=== PATIENT | female | born 1955 | race Caucasian/White ===

== ENCOUNTER → 2023-01-03 08:54 | Outpatient (CLI) | payer MEDICARE, SELFPAY ==
[2023-01-03 09:50] LABS: Hemoglobin A1C 5.7 % (4.0-6.0)
[2023-01-03 09:53] LABS: Basophils % 0.5 % (0.1-2.0); Eosinophils # 0.1 K/mm3 (0.0-0.4); Hematocrit 45.4 % (37.0-47.0); Lymphocytes # 1.6 K/mm3 (0.7-4.5); Lymphocytes % 33.1 % (10-50); Mean Corpuscular HGB Conc 32.9 g/dL (31.8-35.4); Mean Corpuscular Hemoglobin 29.2 pg (27.0-31.2); Mean Corpuscular Volume 88.8 fl (81-99); Mean Platelet Volume 8.6 fl (7.4-10.4); Monocytes # 0.3 K/mm3 (0.1-1.0); Monocytes % 6.6 % (1.7-9.3); Neutrophils # 2.8 K/mm3 (1.8-7.8); Neutrophils % 57.8 % (37.0-80.0); Platelet Count 160 K/mm3 (142-424); Red Blood Count 5.12 M/mm3 (4.20-5.40); Red Cell Distribution Width 13.2 % (11.5-17.5); White Blood Count 4.8 K/mm3 (4.8-10.8)
[2023-01-03 10:13] LABS: Chloride 107 mmol/L (98-107); Potassium 4.7 mmoL/L (3.5-5.1); Sodium 140 mmol/L (136-145)
[2023-01-03 10:15] LABS: Alanine Aminotransferase 38 U/L (12-78); Aspartate Amino Transferase 36 U/L (14-36); Blood Urea Nitrogen 14 mg/dl (7-17); Estimated Glomerular Filt Rate 100 ml/min (>60); GFR (African American) 121 ML/MIN (>60)
[2023-01-03 10:16] LABS: Albumin Level 4.3 g/dl (3.5-5.0); Albumin/Globulin Ratio 1.5 (1.1-1.8); Alkaline Phosphatase 108 U/L (38-126); Anion Gap 11.7 mEq/L (5-15); Bilirubin,Total 0.7 mg/dl (0.2-1.3); Carbon Dioxide 26 mmol/L (22.0-30.0); Chol/HDL Ratio 3.7 (1-3.5); Cholesterol 172 mg/dl (140-200); Globulin 2.8 g/dL (1.3-3.2); Glucose 95 mg/dl (74-100); HDL Cholesterol 47 mg/dl (40-60); Total Protein,Serum 7.1 g/dl (6.3-8.2); Triglycerides 133 mg/dl (30-150); VLDL Cholesterol 27 mg/dL (0-40)
[2023-01-03 10:27] LABS: Direct LDL Cholesterol 92.93 mg/dL (100-129)
[2023-01-03 10:47] LABS: Thyroid Stimulating Hormone 1.92 uIU/mL (0.465-4.68)
== END ==
PROVIDERS: PCP Nurse Practitioner Family; Visit Provider Nurse Practitioner Family
DX: R73.9 Hyperglycemia, unspecified (principal); E78.5 Hyperlipidemia, unspecified; E03.9 Hypothyroidism, unspecified
CPT/HCPCS: 36415; 80053; 80061; 83036; 84443; 85025

== ENCOUNTER 2024-01-23 07:12 | Outpatient (CLI) | payer MEDICARE, SELFPAY ==
--- NOTE | 2024-01-23 07:20 | US_ITS ---
FINAL REPORT CLINICAL HISTORY: UPPER ABD PAIN FINDINGS: RIGHT UPPER QUADRANT ULTRASOUND Sonographic images of the right upper quadrant were obtained. The pancreas is partially obscured. There is fatty infiltration of the liver. The gallbladder appears normal without evidence of gallstones.The common duct measures 3 mm. Limited images of the right kidney are normal. IMPRESSION: Fatty liver. Reviewed, Interpreted and Dictated by Jose Hamlin III, MD Transcribed by Geni Valdes Authenticated and [facility]
[2024-01-23 07:42] LABS: Basophils % 0.6 % (0.1-2.0); Eosinophils # 0.1 K/mm3 (0.0-0.4); Eosinophils % 1.3 % (0.1-12.0); Hematocrit 42.3 % (37.0-47.0); Hemoglobin 14.2 g/dL (12.2-16.2); Lymphocytes # 1.9 K/mm3 (0.7-4.5); Mean Corpuscular HGB Conc 33.5 g/dL (31.8-35.4); Mean Corpuscular Hemoglobin 30.7 pg (27.0-31.2); Mean Corpuscular Volume 91.7 fl (81-99); Mean Platelet Volume 8.2 fl (7.4-10.4); Monocytes # 0.4 K/mm3 (0.1-1.0); Monocytes % 6.4 % (1.7-9.3); Neutrophils # 3.1 K/mm3 (1.8-7.8); Neutrophils % 56.7 % (37.0-80.0); Platelet Count 168 K/mm3 (142-424); Red Blood Count 4.62 M/mm3 (4.20-5.40); Red Cell Distribution Width 13.5 % (11.5-17.5); White Blood Count 5.5 K/mm3 (4.8-10.8)
[2024-01-23 08:58] LABS: Alanine Aminotransferase 29 U/L (12-78); Albumin Level 3.9 g/dl (3.5-5.0); Albumin/Globulin Ratio 1.4 (1.1-1.8); Alkaline Phosphatase 91 U/L (38-126); Amylase 54 U/L (30-110); Anion Gap 12.9 mEq/L (5-15); Aspartate Amino Transferase 31 U/L (14-36); Bilirubin,Total 0.7 mg/dl (0.2-1.3); Blood Urea Nitrogen 24 mg/dl (7-17); Calcium 9.1 mg/dl (8.4-10.2); Carbon Dioxide 23 mmol/L (22.0-30.0); Chloride 111 mmol/L (98-107); Estimated Glomerular Filt Rate 84 ml/min (>60); GFR (African American) 101 ML/MIN (>60); Globulin 2.8 g/dL (1.3-3.2); Glucose 97 mg/dl (74-100); Lipase 132 U/L (23-300); Potassium 3.9 mmoL/L (3.5-5.1); Sodium 143 mmol/L (136-145); Total Protein,Serum 6.7 g/dl (6.3-8.2)
== END 2024-01-23 23:59 | disposition home or self-care (01) ==
LOC: RAD 07:12
PROVIDERS: PCP Nurse Practitioner Family; Visit Provider Nurse Practitioner Family
DX: R10.10 Upper abdominal pain, unspecified (principal)
CPT/HCPCS: 36415; 76705; 80053; 82150; 83690; 85025

== ENCOUNTER 2024-03-12 10:40 | Outpatient (CLI) | payer MEDICARE, SELFPAY ==
--- NOTE | 2024-03-12 10:43 | MM_ITS ---
PROCEDURE INFORMATION: Exam: MG Bilateral Screening 3D Mammography Exam date and time: 03/12/2024 10:48 AM Age: 68 years old Clinical indication: Screening examination TECHNIQUE: Imaging protocol: Bilateral Screening tomosynthesis and 2D mammography including computer-aided detection (CAD) when performed. COMPARISON: No relevant prior studies available. FINDINGS: MAMMOGRAPHY: Breast composition: The breasts are almost entirely fatty. Mass: None. Architectural distortion: None. Calcifications: No suspicious calcifications. Asymmetric density: None. Skin thickening: None. Axillary adenopathy: None. IMPRESSION: No mammographic evidence of malignancy. Annual screening is recommended unless otherwise clinically indicated. ASSESSMENT: BI-RADS Category 1: Negative.
== END 2024-03-12 23:59 | disposition home or self-care (01) ==
LOC: RAD 10:41
PROVIDERS: PCP Nurse Practitioner Family; Visit Provider Nurse Practitioner Family
DX: Z12.31 Encounter for screening mammogram for malignant neoplasm of breast (principal)
CPT/HCPCS: 77063; 77067

== ENCOUNTER 2024-06-14 10:52 | Outpatient (CLI) | payer MEDICARE, SELFPAY ==
--- NOTE | 2024-06-14 | CA_ITS ---
APPROVED REPORT EXAM: Comprehensive 2D, Doppler, and color-flow Echocardiogram Advertising Copy Writer: Maggy Reina CRT Ht: 5 ft 4 in Wt: 255lbs BSA: 2.17 BP: 110/70 mmHg Indications: Dyspnea,HLD, SOB, OBESITY 2D Dimensions LA Volume 38.20 mL LA Volume Index 17.20 mL/m2 (M/F) 16-34 M-Mode Dimensions RVDd 2.88 cm (0.9-2.6) LA Diam 3.51 cm (1.9-4.0) LVDd 5.76 cm (3.5-5.7) LVDs 3.64 cm (3.5-5.7) IVSd 1.17 cm (0.6-1.1) PWd 0.45 cm (0.6-1.1) EF (Teich) 65.90% FS 36.80% EDV (Teich) 163.90 mL TAPSE 1.91 (<1.7) ESV (Teich) 55.90 mL LV Diastology E Decel Time 197 (160-240 msec) E/A Ratio 0.92 MED A' 9.10 cm/s LAT A' 10.60 cm/s Aortic Valve AI PHT 629.00 ms AO Peak GR. 5.30 mmHg Mitral Valve MV A Velocity 64.0 (40-130 cm/s) E/A Ratio 0.92 Pulmonary Valve PV Peak Velocity 105.0 (50-150 cm/s) Tricuspid Valve TR P. Velocity 220.00 cm/s RAP Estimate 10.00 mmHg RVSP 29.40 mmHg Left Ventricle The left ventricle is normal size. The left ventricular systolic function is normal. The left ventricular ejection fraction is within the normal range. There is increased LV wall thickness. There is normal LV segmental wall motion. The left ventricular diastolic function is normal. LVEF is 55%. Right Ventricle The right ventricle is normal size. The right ventricular systolic function is normal. Atria Left atrium is mildly dilated. The right atrium size is normal. There is no Doppler evidence of interatrial shunt. Aortic Valve The aortic valve is mildly thickened. There is no aortic valvular stenosis. Mild to moderate aortic regurgitation. Mitral Valve The mitral valve leaflets are mildly thickened. No evidence of mitral valve stenosis. Mild mitral regurgitation. Tricuspid Valve Tricuspid valve is grossly normal in structure and function. Trace tricuspid regurgitation. There is insufficient TR jet to estimate RVSP. Trace pulmonic regurgitation. Pulmonic Valve The pulmonary valve is normal in structure. Great Vessels The aortic root is normal in size. IVC is normal in size and collapses >50% with inspiration. Pericardium There is no pericardial effusion. Other Information Study Quality: Fair Conclusion Normal biventricular systolic function. Mild LA dilation. Mild to moderate AI. Mild MR. Electronically signed by : Justine Reyes MD 07/01/2024 10:22:23
== END 2024-06-14 23:59 | disposition home or self-care (01) ==
PROVIDERS: PCP Nurse Practitioner Family; Visit Provider Nurse Practitioner Family
DX: R06.09 Other forms of dyspnea (principal); I51.7 Cardiomegaly; I34.0 Nonrheumatic mitral (valve) insufficiency; I35.1 Nonrheumatic aortic (valve) insufficiency
CPT/HCPCS: 93306

== ENCOUNTER 2025-01-29 11:32 | Outpatient (CLI) | payer MEDICARE, SELFPAY ==
--- OUTSIDE RECORDS SUMMARY | 2025-01-29 11:38 | XMS_ITS | Clinical Summary ---
Author Organization [facility] ([place], [place], [place], [place]) Address [address] [place] [address] Care Team Providers Care Life Consultant Name Role Phone Malaika Valdovinos ISIDRO Primary Care Provider + [phone] Allergies No known active allergies Medications atorvastatin (LIPITOR) 20 MG tablet Take 1 tablet (20 mg total) by mouth daily. 06/13/2024 Active benzonatate (TESSALON) 200 MG capsule Take 1 capsule (200 mg total) by mouth 3 (three) times daily as needed. 06/08/2024 Active levothyroxine (SYNTHROID) 75 MCG tablet Take 1 tablet (75 mcg total) by mouth daily. 07/29/2024 Active pantoprazole (PROTONIX) 40 MG tablet Take 1 tablet (40 mg total) by mouth daily. 07/29/2024 Active cyanocobalamin (vitamin B-12) 1000 MCG tablet Take 1 tablet (1,000 mcg total) by mouth daily. Active polycarbophiL (FIBERCON) 625 mg tablet Take 1 tablet (625 mg total) by mouth daily. Active multivitamin per tablet Take 1 tablet by mouth daily. Active Active Problems No known active problems Family History Medical History Relation Name Comments Heart attack Mother Relation Name Status Comments Mother Social History Tobacco Use Types Packs/Day Years Used Date Smoking Tobacco: Never Smokeless Tobacco: Never Tobacco Cessation:Counseling Given: Not Answered Comments Unknown Sex and Gender Information Value Date Recorded Sex Assigned at Not on file Legal Sex Female 3:36 PM CDT Gender Identity Female 08/14/2024 8:19 AM SDE Sexual Orientation Not on file Last Filed Vital Signs Vital Sign Reading Time Taken Comments Blood Pressure 120/70 07/30/2024 1:38 PM EST Pulse 76 07/30/2024 1:38 PM EST Temperature - - Respiratory Rate - - Oxygen Saturation - - Inhaled Oxygen Concentration - - Weight 119.7 kg (264 lb) 07/30/2024 1:38 PM EST Height 165.1 cm (5' 5 ) 07/30/2024 1:38 PM EST Body Mass Index 43.93 07/30/2024 1:38 PM EST Plan of Treatment Health Maintenance Due Date Last Done Comments CT Colonography 1957 Colonoscopy 1957 Colorectal Cancer Screening 1957 DXA SCAN 1957 FOBT/FIT 1957 Fit-DNA (Cologuard) 1957 Sigmoidoscopy 1957 Depression Screening (12+) 1969 Hepatitis C Screening 10/28/1975 DTAP/TDAP/TD VACCINES (1 - Tdap) 1976 Pneumococcal 50+ years (1 of 1 - PCV) 10/28/2007 Shingles Vaccine (Zoster) (1 of 2) 10/28/2007 Respiratory Syncytial Virus (RSV) Adult or (1 - Risk 60-74 years 1-dose series) 2017 Breast Cancer Screening 04/15/2021 04/15/2019, 07/30 COVID-19 VACCINE ( - season) 2024 Falls Risk Screening 06/19/2024 Medicare Initial AWV [id number] 06/20/2024 Influenza Vaccine (#1) 2025 Tobacco Cessation Counseling and Screening (12+) 07/30/2025 07/30/2024 Insurance [facility] MEDICARE PPO Care Teams Life Consultant Relationship Specialty Start Date End Date Malaika Valdovinos, [address] [address] PCP - General Nurse Practitioner 07/30/24
--- OUTSIDE RECORDS SUMMARY | 2025-01-29 11:38 | XMS_ITS | Clinical Summary ---
Author Organization [facility] Address [address] [place] [address] Care Team Providers Care Carbonation Tester Name Role Phone Monica Fletcher BUCKLE STRINGER Primary Care Provider [phone] Source Comments This information has been disclosed to you from confidential records protectedfrom disclosure by state law. You shall make no further disclosure of thisinformation without the specific, written, and informed release of theindividual to whom it pertains, or as otherwise permitted by law. A generalauthorization for the release of medical or other information is not sufficientfor the purposes of therelease of HIV test results or diagnoses. [id number] Health Social History Tobacco Use Types Packs/Day Years Used Date Smoking Tobacco: Never Assessed Comments Unknown Sex and Gender Information Value Date Recorded Sex Assigned at Not on file Legal Sex Female 1:12 PM EDT Gender Identity Not on file Sexual Orientation Not on file Plan of Treatment Not on file Care Teams Carbonation Tester Relationship Specialty Start Date End Date Monica Fletcher NP [address] [place] [address] [place] [id number] PCP - General 04/15/19
--- OUTSIDE RECORDS SUMMARY | 2025-01-29 11:38 | XMS_ITS | Clinical Summary ---
Author Organization [facility] Address [address] [place] [id number] Care Team Providers Care Technical Internship Name Role Phone Francisco Ngo MD Primary Care Provider [phone] Social History Tobacco Use Types Packs/Day Years Used Date Smoking Tobacco: Never Assessed Abuse Screen Answer Date Recorded Unsafe at Home or Work/School Not on file Feels Threatened by Someone? Not on file 02/2023 Does Anyone Keep You from Co ntacting Others or Doint Things Outside the Home? Not on file 03/27/2023 Physical Sign of Abuse Present Not on file 1 Housing Stability Answer Date Recorded Current Living Arrangements Not on file 02/2023 Potentially Unsafe Housing Conditions Not on elina e 03/27/2023 Family and Community Support Answer Mic e Recorded Help with Day-to-Day Activities Not on file 03/27/2023 Lonely or Isolated Not on file 03/27/2023 Employment Answer Date Recorded Do you want help finding or keeping work or a abner b? Not on file 03/27/2023 Disabilities Answer Date Recorded Concentrating, Remembering, or Making Decisions Difficulty Not on file 03/27/2023 Doing Errands Independently Difficulty Not on fi le 03/27/2023 Education Answer Date Recorded Help with school or training? Not on file Preferred Language Not on file 03/27/2023 Comments Unknown Sex and Gender Information Value Date Recorded Sex Assigned at Not on file Legal Sex Female 9:59 AM EDT Gender Identity Not on file Sexual Orientation Not on file Plan of Treatment Health Maintenance Due Date Last Done Comments ANNUAL PHYSICAL 1955 DXA SCAN 1957 HEPATITIS C SCREENING 1957 TDAP/TD VACCINES (1 - Tdap) 1976 COLOGUARD 2002 COLON CANCER SCREENING 5 YEAR SIGMOIDOSCOPY 2002 COLONOSCOPY 2002 [address] CANCER SCREENING 2002 CT COLONOGRAPHY 2002 FECAL OCCULT BLOOD TEST 2002 FIT Testing (1 year) 2002 Pneumococcal Vaccine 50+ (1 of 1 - PCV) 10/28/2007 ZOSTER VACCINE (1 of 2) 10/28/2007 MAMMOGRAM 07/30/2017 07/30/2015 COVID-19 Vaccine ( - 2023- season) 2024 INFLUENZA VACCINE 03/19/2025 Procedures Procedure Name Priority Date/Time Associated Diagnosis Comments MAMMO SCREENING BILATERAL W CAD Routine 07/30/2015 8:59 AM EST from Last 3 Months or Most Recently Relevant to Health Maintenance Results * Mammo screening bilateral (07/30/2015 8:59 AM EST) Anatomical Region Laterality Modality Breast Bilateral Mammography 07/30/2015 8:59 AM EST Narrative 07/30/2015 10:12 AM EST ROUTINE SCREENING MAMMOGRAM HISTORY- 59-year-old female for routine screening IMAGE COMPARISON- Prior exams, most recently 04/03/2013 TECHNIQUE- Bilateral full field digital mammography was performed in both 2 and 3-dimensional acquisitions. FINDINGS- The breasts are almost entirely fatty. There is no worrisome mass, group of calcifications, or architectural distortion to suggest malignancy. IMPRESSION- No findings suspicious for malignancy. BI-RADS CATEGORY- I, NEGATIVE RECOMMENDATION- Yearly mammogram, yearly physical exam, and monthly self breast exam. CAD was used. The standard false negative rate of mammography is between 10% and 25%. Complex patterns or increased breast density will markedly elevate the false negative rate of mammography. If there is a palpable area of concern, biopsy should be considered regardless of imaging findings. A letter, in lay terminology, with the results of this exam will be mailed to the patient. Reading Radiologist- ADELSO LESTER Releasing Radiologist- ADELSO LESTER Released Date Time- 07/30/15 1012 Screw Machine RepairerLynda Ang Procedure Note Adelso Jeffery MD - 07/30/2015 ROUTINE SCREENING MAMMOGRAM HISTORY- 59-year-old female for routine screening IMAGE COMPARISON- Prior exams, most recently 04/03/2013 TECHNIQUE- Bilateral full field digital mammography was performed in both 2 and 3-dimensional acquisitions. FINDINGS- The breasts are almost entirely fatty. There is no worrisome mass, group of calcifications, or architectural distortion to suggest malignancy. IMPRESSION- No findings suspicious for malignancy. BI-RADS CATEGORY- I, NEGATIVE RECOMMENDATION- Yearly mammogram, yearly physical exam, and monthly self breast exam. CAD was used. The standard false negative rate of mammography is between 10% and 25%. Complex patterns or increased breast density will markedly elevate the false negative rate of mammography. If there is a palpable area of concern, biopsy should be considered regardless of imaging findings. A letter, in lay terminology, with the results of this exam will be mailed to the patient. Reading Radiologist- ADELSO LESTER Releasing Radiologist- ADELSO LESTER Released Date Time- 07/30/15 1012 Screw Machine Repairer- Sav Francisco Ngo MD [facility] [place] F inal Result from Last 3 Months or Most Recently Relevant to Health Maintenance Care Teams Technical Internship Relationship Specialty Start Date End Date Francisco Ngo MD [address] [place] [facility] [address] [place] [id number] PCP - General 07/30/15
--- OUTSIDE RECORDS SUMMARY | 2025-01-29 11:38 | XMS_ITS | Referral Summary ---
Author Organization [facility] ([place], [place], [place], [place]) Address [address] [place] [address] Care Team Providers Care Tourist Information Officer Name Role Phone Malaika Valdovinos ISIDRO Primary Care Provider + [phone] Allergies No known active allergies Medications atorvastatin [...] Active Active Problems No known active problems Social History Tobacco Use Types Packs/Day Years Used Date Smoking Tobacco: Never Smokeless Tobacco: Never Tobacco Cessation:Counseling Given: Not Answered Comments Unknown Sex and Gender Information Value Date Recorded Sex Assigned at Not on file Legal Sex Female 3:36 PM CDT Gender Identity Female 08/14/2024 8:19 AM PUMP OILER Sexual Orientation Not on file Last Filed [...] 07/30/2024 1:38 PM EST Plan of Treatment Not on file Insurance [employer] MEDICARE PPO Care Teams Tourist Information Officer Relationship Specialty Start Date End Date Malaika Valdovinos APRN [address] [place] [address] PCP - General Nurse Practitioner 07/30/24
[2025-01-29 11:56] LABS: Hematocrit 43.6 % (37.0-47.0); Hemoglobin 14.7 g/dL (12.2-16.2); Immature Granulocytes % 0.2 %; Mean Corpuscular HGB Conc 33.7 g/dL (31.8-35.4); Mean Corpuscular Hemoglobin 30.0 pg (27.0-31.2); Mean Corpuscular Volume 89.0 fl (81-99); Nucleated Red Blood Cells % 0 %; Platelet Count 145 K/mm3 (142-424); Red Blood Count 4.90 M/mm3 (4.20-5.40); Red Cell Distribution Width-SD 39.6 fL; White Blood Count 4.8 K/mm3 (4.8-10.8)
[2025-01-29 12:30] LABS: Albumin Level 4.4 g/dl (3.5-5.0); Chloride 105 mmol/L (98-107); Potassium 4.6 mmoL/L (3.5-5.1); Sodium 139 mmol/L (136-145)
[2025-01-29 12:32] LABS: Blood Urea Nitrogen 22 mg/dl (7-17); Creatinine,Serum 0.60 mg/dl (0.52-1.04); Estimated Glomerular Filt Rate 100 ml/min (>60); GFR (African American) 121 ML/MIN (>60)
[2025-01-29 12:33] LABS: Alanine Aminotransferase 40 U/L (12-78); Albumin/Globulin Ratio 1.5 (1.1-1.8); Alkaline Phosphatase 92 U/L (38-126); Anion Gap 13.6 mEq/L (5-15); Aspartate Amino Transferase 41 U/L (14-36); Bilirubin,Total 1.0 mg/dl (0.2-1.3); Calcium 9.2 mg/dl (8.4-10.2); Carbon Dioxide 25 mmol/L (22.0-30.0); Cholesterol 235 mg/dl (140-200); Globulin 2.9 g/dL (1.3-3.2); Glucose 95 mg/dl (74-100); HDL Cholesterol 46 mg/dl (40-60); Total Protein,Serum 7.3 g/dl (6.3-8.2); Triglycerides 125 mg/dl (30-150)
[2025-01-29 12:49] LABS: Free T4 (Free Thyroxine) 1.13 ng/dl (0.78-2.19)
[2025-01-29 13:06] LABS: Thyroid Stimulating Hormone 1.88 uIU/mL (0.465-4.68)
== END 2025-01-29 23:59 | disposition home or self-care (01) ==
LOC: LAB 11:33
PROVIDERS: PCP Nurse Practitioner Family; Visit Provider Nurse Practitioner Family
DX: E03.9 Hypothyroidism, unspecified (principal); E78.5 Hyperlipidemia, unspecified
CPT/HCPCS: 36415; 80053; 80061; 84439; 84443; 85025

== ENCOUNTER 2025-03-24 09:26 | Outpatient (CLI) | payer MEDICARE, SELFPAY ==
--- NOTE | 2025-03-24 09:30 | XR_ITS ---
FINAL REPORT TECHNIQUE: Bone densitometry calculations of the lumbar spine and left hip were obtained. CLINICAL HISTORY: SCREENING COMPARISON: None FINDINGS: Using L1-4, the bone mineral density of the spine is 1.193 g/cm2, corresponding to T-score of 1.3 and a Z score of 3.3. This is within the range of normal limits. Using the left hip, the bone mineral density of the femoral neck is 0.701 g/cm2, corresponding to a T-score of -1.3 and a Z-score of 0.3. This is within the range of osteopenia. FRAX 10 year fracture risk is 1.4% for a hip fracture and 14% for a major osteoporotic fracture. NOTE: T-score: Standard deviation compared with peak bone mass of young adult mean. *Following the recommendations of the International Society of Bone densitometry, classification of hip BMD is based on the lower of two T-scores; total hip or femoral neck. IMPRESSION: 1. Bone mineral density of the lumbar spine within the range of normal limits. 2. Bone mineral density of the left femoral neck within the range of osteopenia. Reviewed, Interpreted and Dictated by Santa Price MD Transcribed by Sara Arrieta Authenticated and [facility]
--- OUTSIDE RECORDS SUMMARY | 2025-03-24 09:33 | XMS_ITS | Clinical Summary ---
Author Organization [facility] Address [address] [place] [id number] Care Team Providers Care Print Shop Assistant Name Role Phone Monica Fletcher MECHANICAL ENERGY ENGINEER Primary Care Provider [phone] Source Comments This information has been disclosed [...] therelease of HIV test results or diagnoses. [id number] Health Social History Tobacco Use Types Packs/Day Years Used Date Smoking Tobacco: Never Assessed Comments Unknown Sex and Gender Information Value Date Recorded Sex Assigned at Not on file Legal Sex Female 1:12 PM EDT Gender Identity Not on file Sexual Orientation Not on file Plan of Treatment Not on file Care Teams Print Shop Assistant Relationship Specialty Start Date End Date Monica Fletcher NP [address] [place] [address] [place] [id number] PCP - General 04/15/19
--- OUTSIDE RECORDS SUMMARY | 2025-03-24 09:33 | XMS_ITS | Clinical Summary ---
Author Organization [facility] ([place], [place], [place], [place]) Address [address] [place] [address] Care Team Providers Care Stock Order Lister Name Role Phone Malaika Valdovinos ISIDRO Primary Care Provider + [phone] Allergies No known active allergies Medications atorvastatin [...] CDT Gender Identity Female 08/14/2024 8:19 AM DISABILITY LIAISON OFFICER Sexual Orientation Not on file Last Filed [...] 2017 Breast Cancer Screening 04/15/2021 04/15/2019, 07/30 Falls Risk Screening 06/19/2024 Medicare Initial AWV [id number] 06/20/2024 COVID-19 VACCINE ( - season) 2025 Influenza Vaccine (#1) 2025 Tobacco Cessation Counseling and Screening (12+) 07/30/2025 07/30/2024 Insurance [facility] MEDICARE PPO Care Teams Stock Order Lister Relationship Specialty Start Date End Date Malaika Valdovinos, [address] [address] PCP - General Nurse Practitioner 07/30/24
--- OUTSIDE RECORDS SUMMARY | 2025-03-24 09:33 | XMS_ITS | Referral Summary ---
Author Organization [facility] ([place], [place], [place], [place]) Address [address] [place] [address] Care Team Providers Care Knitter Hand Name Role Phone Malaika Valdovinos ISIDRO Primary Care Provider + [phone] Allergies No known active allergies Medications atorvastatin [...] CDT Gender Identity Female 08/14/2024 8:19 AM SLURRY TANK OPERATOR Sexual Orientation Not on file Last Filed [...] file Insurance [employer] MEDICARE PPO Care Teams Knitter Hand Relationship Specialty Start Date End Date Malaika Valdovinos APRN [address] [place] [address] PCP - General Nurse Practitioner 07/30/24
--- OUTSIDE RECORDS SUMMARY | 2025-03-24 09:33 | XMS_ITS | Clinical Summary ---
Author Organization [facility] Address [address] [place] [id number] Care Team Providers Care Soccer Coach Name Role Phone Francisco Ngo MD Primary Care Provider Social History Tobacco Use Types Packs/Day Years [...] (1 of 2) 10/28/2007 MAMMOGRAM 07/30/2017 07/30/2015 INFLUENZA VACCINE 01/17/2025 COVID-19 Vaccine ( season) 2025 Procedures Procedure Name Priority Date/Time Associated Diagnosis [...] ADELSO LESTER Released Date Time- 07/30/15 1012 Asp Net ProgrammerLynda Ang Procedure Note Adelso Jeffery MD - [...] ADELSO LESTER Released Date Time- 07/30/15 1012 Asp Net Programmer- Sav Francisco Ngo MD [facility] [place] MAMMOGRAPHY ORDERABLES F inal Result from Last 3 Months or Most Recently Relevant to Health Maintenance Care Teams Soccer Coach Relationship Specialty Start Date End Date Francisco Ngo MD [address] [place] [facility] [address] [place] [id number] PCP - General 07/30/15
== END 2025-03-24 23:59 | disposition home or self-care (01) ==
LOC: RAD 09:27
PROVIDERS: PCP Nurse Practitioner Family; Visit Provider Nurse Practitioner Family
DX: Z13.820 Encounter for screening for osteoporosis (principal); Z78.0 Asymptomatic menopausal state; M85.88 Other specified disorders of bone density and structure, other site
CPT/HCPCS: 77080

== ENCOUNTER 2025-06-05 06:27 | Day surgery (SDC) | payer MEDICARE, SELFPAY ==
--- NOTE | 2025-06-02 06:58 | EXP.HP ---
History of Present Illness *Admission Date: 06/05/25 *History of present illness: Mrs. Levy is a 69-year-old female who is here for screening/surveillance colonoscopy. Her last colonoscopy was in February 2012 (Quentin Ochoa M.D) at which time 4 colon polyps (tubular adenomas x 3/hyperplastic polyp x 1) were removed. The examination is deemed medically necessary for screening/surveillance colonoscopy. The patient has been seen, interviewed and examined prior to the procedure by both myself and the anesthesia provider. [facility] Disclaimer: The information contained in this section may have been updated after the patient was seen, as this information can be updated by other users. Medical History Hypothyroid Surgical History H/O: History of hysterectomy Family History Other No significant family history Social History (Updated 06/05/25 @ 07:23 by Marcelino Edward CRNA) Smoking Status: Never smoker alcohol intake: never substance use type: denies use current occupational status: retired Travel in the last 8 weeks?: None Have you lived/traveled outside US in past 30 days?: No Contact w/someone who lives/traveled outside US past 30 days?: No Exposure to someone with infectious disease in past 14 days?: No Do you have a fever (greater than 100.4 F or 38 C)?: No Have you tested positive for COVID-19?: No Exposed to someone with COVID-19 in past 14 days?: No Do you have a sore throat?: No Do you have a cough?: No Do you have any weakness?: No Do you have any diarrhea?: No Are you experiencing any unusual bleeding?: No Do you have any muscle aches/pain?: No Do you have any abdominal pain?: No Are you experiencing loss of taste or smell?: No Review of Systems Review of Systems Review of systems (narrative): Negative *Cardiovascular Comments: Negative *Gastrointestinal Comments: Negative *Genitourinary Comments: Negative *Musculoskeletal Comments: Negative *Neurologic Comments: Negative Meds Home Medications and Allergies Home Medications ?Medication ?Instructions ?Recorded ?Confirmed ?Type calcium 600 mg (as 1 tab PO DAILY 06/03/25 06/05/25 History carbonate)-vitamin D3 5 mcg (200 unit) tablet levothyroxine 75 mcg tablet 75 mcg PO DAILY 06/03/25 06/05/25 History (Synthroid) mecobalamin (vitamin B12) 1,000 1,000 mcg PO DAILY 06/03/25 06/05/25 History mcg chewable tablet (B12 Active) New Prescriptions to Start Prescriptions: Allergies Allergy/AdvReac Type Severity Reaction Status Date / Time No Known Allergies Allergy Verified 06/05/25 06:58 Exam *Routine HEENT Exam Head: Present normocephalic Eye: Present EOMI and PERRL ENT: Present mucous membranes moist *Routine Neck Exam Neck: Present supple *Routine Respiratory Exam Respiratory: Present CTA bilaterally *Routine Cardiovascular Exam Cardiovascular: Present RRR *Routine Abdominal Exam Abdominal: Present soft and normoactive bowel sounds; Absent tenderness *Routine Rectal Exam Rectal:: deferred *Routine Genitalia Exam Genitalia:: deferred *Routine Extremities Exam Extremities: Absent cyanosis, clubbing or edema *Routine Skin Exam Skin: Present warm; Absent rash *Routine Neurological Exam Neurological: Present alert and oriented X3 Assessment and Plan *Assessment and plan (1) Personal history of adenomatous and serrated colon polyps: Status: Acute Category: Medical Code(s): Z86.0101 - Personal history of adenomatous and serrated colon polyps (2) Screening for colon cancer: Status: Acute Category: Medical Code(s): Z12.11 - Encounter for screening for malignant neoplasm of colon Plan A/P: 1. Personal history of adenomatous colon polyps is the preprocedural diagnosis. The patient will be anesthetized/sedated using MAC sedation. The patient has been seen and examined. Cardiac and lung assessment prior to the examination is stable. Proceed with planned screening/surveillance colonoscopy.
[2025-06-03 15:30] VITALS: BMI 42.0
--- NOTE | 2025-06-05 06:47 | P.PCN_ITS ---
[facility] Procedure Note Date: 06/05/25 Time: 08:16 Procedure Note:: Colonoscopy Procedure Report: Colonoscopy with cold snare polypectomy Endoscopist: Kp Junior II, MD Referring physician: DAVID Fraire Date of Procedure: June 05, 2025 Equipment: Olympus [id number] adult colonoscope Sedation: MAC sedation Indication: Mrs. Levy is a 69-year-old female who is here for screening/surveillance colonoscopy. The patient reports no abdominal pain, weight loss, change in her bowel habits or rectal bleeding. She reports no family history of colon cancer. Her last colonoscopy was in February 2012 (Quentin Ochoa M.D) at which time 4 colon polyps (tubular adenomas x 3/hyperplastic polyp x 1) were removed. The examination is deemed medically necessary for screening/surveillance colonoscopy. Procedure: Prior to the procedure, a history and physical exam was performed, and patient's medications and allergies were reviewed. The risks, benefits and alternatives of the sedation and procedure were discussed with the patient. All questions were answered and informed consent was obtained. The patient was brought to the procedure room. Patient identification and proposed procedure were verified by the physician and the nurse. The patient was placed in a left lateral decubitus position and the scope was passed under direct vision. Throughout the procedure, the patient's blood pressure, pulse, and oxygen saturations were monitored continuously. The colonoscopy was accomplished without difficulty. The patient tolerated the procedure well. Findings: On digital rectal examination there was normal rectal tone. There were no external hemorrhoids. The colonoscope was introduced through the anal canal to the rectum and advanced to the cecum. The ileocecal valve and appendiceal orifice were identified. The scope was advanced a short distance into the ileum which appeared grossly normal. The scope was then withdrawn into the colon. There were 4 colon polyps (ascending x 2 (3 and 4 mm), transverse x 1 (5 mm) and descending x 1 (4 mm)). These were all removed via cold snare polypectomy. The remaining cecum, ascending and transverse colon and mucosa were grossly normal. There were scattered extensive diverticuli throughout the descending and sigmoid colon (LEFT colon). The rectum itself was normal. Upon retroflexion within the rectum there were grade 1-2 internal hemorrhoids. The preparation was excellent throughout with Julian Preparation Score of 9. The cecal time was 14 minutes. Impression: 1. Diminutive colonic polyps x 4 2. Extensive left-sided diverticulosis 3. Grade 1-2 internal hemorrhoids Plan: I will follow-up the polyp histology and recommend repeat screening/surveillance colonoscopy again in 5 years. I would encourage psyllium bulking fiber supplementation on a long-term daily maintenance basis.
[2025-06-05 06:59] VITALS: BP 132/85; PULSE 86; RESP 18; TEMP 36.6; O2SAT 94
[2025-06-05] MEDS: LACTATED RINGERS 1000ML 1,000 ML 50 ML IV (07:07)
--- NOTE | 2025-06-05 07:20 | EXP.ANES.CKL ---
[facility] Disclaimer: The information contained in this section may have been updated after the patient was seen, as this information can be updated by other users. Medical History Hypothyroid Surgical History H/O: History of hysterectomy Family History Other No significant family history Social History Smoking Status: Never smoker alcohol intake: never substance use type: denies use current occupational status: retired Travel in the last 8 weeks?: None [facility] Anesthesia Checklist Patient Identification Patient Identification: Arm Band and Family Structural Data Admitted From: Home Planned Operative Procedure/s: colonoscopy Consent for Planned Operative Procedure(s) Verified: Yes Verified Documents: Surgical Consent and History and Physical NPO Status Verified Time NPO: 00:00 Additional verifications Patient : No Anesthesia Reactions: No Hx Blood Transfusions: No Blood Transfusion Reaction: No Cephalosporin Allergy: No Previous Colonoscopy: Yes Airway Assessment Mallampati Score:: Class II C-Spine Mobility Assessed: Yes TMJ Mobility Assessed: Yes Dentition: Good Dentition Neurological Assessment Level of Consciousness: Awake, Alert and Appropriate Hx Seizures: No Numbness or tingling in extremities: No Anesthesia Plan Anesthesia Risk discussed: Yes ASA Class: II Anesthesia Type: MAC
[2025-06-05 08:18] VITALS: BP 98/66; PULSE 76; RESP 18; TEMP 36.2; O2SAT 92
[2025-06-05 08:28] VITALS: BP 110/75; PULSE 76; RESP 18; TEMP 36.2; O2SAT 93
[2025-06-05 08:38] VITALS: BP 114/74; PULSE 70; RESP 20; TEMP 36.2; O2SAT 95
[2025-06-05 08:48] VITALS: BP 124/84; PULSE 72; RESP 20; TEMP 36.2; O2SAT 96
== END 2025-06-05 08:48 | disposition home or self-care (01) ==
PROVIDERS: PCP Nurse Practitioner Family; Visit Provider Internal Medicine Gastroenterology
PROC: 0DJD8ZZ Inspection of Lower Intestinal Tract, Via Natural or Artificial Opening Endoscopic (ICD-10-PCS; CPT 45378; principal; 2025-06-05 08:00)
DX: Z12.11 Encounter for screening for malignant neoplasm of colon (principal); D12.2 Benign neoplasm of ascending colon; D12.4 Benign neoplasm of descending colon; D12.3 Benign neoplasm of transverse colon; K57.30 Diverticulosis of large intestine without perforation or abscess without bleeding; K64.1 Second degree hemorrhoids; Z86.0101 Personal history of adenomatous and serrated colon polyps; Z86.0102 Personal history of hyperplastic colon polyps
CPT/HCPCS: 45385; 88305; J2003; J2704; J7120